=== PATIENT | female | born 1960 | race Hispanic/Latino ===

== ENCOUNTER 2018-01-18 16:41 | Emergency (ER) | payer OTHER ==
[~2018-01-18] VITALS: Ht 142.2 cm; Wt 48.8 kg
[2018-01-18] MEDS ORDERED: POLYTRIM OD (17:05)
[2018-01-18 17:10] VITALS: BP 140/74
== END 2018-01-18 17:20 | disposition home or self-care (01) | DRG 125 ==
LOC: ED 16:41
DX: H57.11 Ocular pain, right eye (principal); T75.89XA Other specified effects of external causes, initial encounter; X58.XXXA Exposure to other specified factors, initial encounter; Y93.H2 Activity, gardening and landscaping; Y92.007 Garden or yard of unspecified non-institutional (private) residence as the place of occurrence of the external cause